=== PATIENT | female | born 1975 | race Caucasian/White ===

== ENCOUNTER → 2017-04-09 | Outpatient (CLI) | payer OTHER ==
[~2017-04-09] MED LIST: DIAZ5 PO
== END ==
LOC: CPRE 12:40
PROVIDERS: ATTEND Obstetrics & Gynecology
DX: Z01.812 Encounter for preprocedural laboratory examination (principal); N85.00 Endometrial hyperplasia, unspecified; N92.0 Excessive and frequent menstruation with regular cycle; N92.1 Excessive and frequent menstruation with irregular cycle; N83.209 Unspecified ovarian cyst, unspecified side

== ENCOUNTER 2017-04-17 06:00 | Observation (INO) | payer OTHER ==
[~2017-04-17] VITALS: Ht 149.9 cm; Wt 65.9 kg
[2017-04-17] MEDS ORDERED: CHLORHEXIDINE GLUCONATE 2 % 1 PACK (2 CLOTHS) TOPICAL PRN (06:45)
[2017-04-17] MEDS ORDERED: LACTATED RINGER'S 1000 ML IV PRN (06:45)
[2017-04-17] MEDS ORDERED: POVIDONE IODINE 5% (ANTISEPSIS KIT) 4 APPLICATIONS EACH NARE PRN (06:45)
[2017-04-17] MEDS ORDERED: INSULIN HUMAN REGULAR 1,000 UNITS/10 ML VIAL SQ PRN (06:45)
[2017-04-17] MEDS ORDERED: SODIUM CHLORID 0.9% 500 ML IV PRN (06:45)
[2017-04-17] MEDS ORDERED: METOPROLOL TARTRATE 25 MG TAB PO PRN (06:45)
[2017-04-17] MEDS ORDERED: DIAZ5 PO (07:10)
[2017-04-17] MEDS ORDERED: ACETAMINOPHEN 1000 MG/100 ML 100 ML IV ONE (07:10)
[2017-04-17] MEDS ORDERED: ESTROGENS CONJUGATED VAG CREA 15 APPL/30 GM TUBE ONE (07:30)
[2017-04-17] MEDS ORDERED: ceFAZolin INJ 1,000 MG VIAL IV ONE (08:48)
[2017-04-17] MEDS ORDERED: DO NOT ADM ANY ANTICOAGULANT DRUGS PRN (11:02)
[2017-04-17] MEDS ORDERED: *ONDANSETRON 4 MG VIAL PERIprocedural Use ONLY ONE (11:59)
[2017-04-17] MEDS ORDERED: SODIUM CHLORIDE 0.9% FLUSH 10 ML FLUSH IV FLUSH PRN (13:00)
[2017-04-17] MEDS ORDERED: DIAZEPAM 5 MG TAB PO PRN (13:00)
[2017-04-17] MEDS ORDERED: diphenhydrAMINE HCL 25 MG CAP PO PRN (13:00)
[2017-04-17] MEDS: DOCUSATE SODIUM 100 MG CAP PO SCH (13:00)
[2017-04-17 14:00] VITALS: BP 97/62; PULSE 88; RESP 18; O2SAT 100
[2017-04-17 14:50] VITALS: TEMP 99
[2017-04-17] MEDS: IBUPROFEN 600 MG TAB PO SCH ×2 (15:00→21:14)
[2017-04-17] MEDS ORDERED: HYDROmorphone HCL PF 1 MG/ML VIAL IVP PRN (15:00)
[2017-04-17] MEDS ORDERED: oxyCODONE/ACETAMINOPHEN 5 MG/325 MG TAB PO PRN ×2 (15:00)
[2017-04-17] MEDS ORDERED: PROMETHAZINE INJ 25 MG/ML VIAL IM PRN (15:00)
[2017-04-17 17:20] VITALS: BP 94/53; PULSE 91; RESP 18; TEMP 98.3; O2SAT 99
[2017-04-17] MEDS: ONDANSETRON HCL 4 MG/2 ML VIAL IVP PRN (17:45)
[2017-04-17 19:56] VITALS: BP 93/54; PULSE 95; RESP 16; TEMP 99.4
[2017-04-17] MEDS ORDERED: SODIUM CHLORIDE 0.9% FLUSH 10 ML FLUSH IV FLUSH SCH (21:00)
[2017-04-17] MEDS ORDERED: ZOLPIDEM TARTRATE 5 MG TAB PO PRN (21:00)
[2017-04-17] MEDS: LACTATED RINGER'S 1000 ML INJ 1,000 ML IV SCH (21:19)
[2017-04-18 00:50] VITALS: BP 96/53; PULSE 105; RESP 16; TEMP 98.7; O2SAT 99
[2017-04-18] MEDS: DOCUSATE SODIUM 100 MG CAP PO SCH ×2 (02:52→12:25)
[2017-04-18] MEDS: IBUPROFEN 600 MG TAB PO SCH ×2 (02:52→12:25)
[2017-04-18] MEDS: LACTATED RINGER'S 1000 ML INJ 1,000 ML IV SCH (05:00)
[2017-04-18 05:15] VITALS: BP 93/51; PULSE 88; RESP 16; TEMP 98.8; O2SAT 99
[2017-04-18 06:52] LABS: AUTOMATED NEUTROPHIL # 4.2 TH/MM3 (1.8-7.7); BASOPHIL % 0.3 % (0.0-2.0); EOSINOPHIL % 0.6 % (0.0-4.0); HEMATOCRIT 23.5 % (35.0-46.0); HEMO FLAGS DIFF FINAL; LYMPHOCYTE # 1.2 TH/MM3 (1.0-4.8); MEAN CELL VOLUME 84.8 FL (80.0-100.0); MEAN CORPUSCULAR HEMOGLOBIN 29.1 PG (27.0-34.0); MEAN CORPUSCULAR HGB CONC 34.3 % (32.0-36.0); MONO % 6.5 % (0.0-8.0); NEUT % 71.6 % (16.0-70.0); PLATELET COUNT 113 TH/MM3 (150-450); RED BLOOD COUNT 2.77 MIL/MM3 (4.00-5.30); RED CELL DISTRIBUTION WIDTH 14.2 % (11.6-17.2); WHITE BLOOD COUNT 5.9 TH/MM3 (4.0-11.0)
[2017-04-18 07:11] LABS: BICARBONATE 25.5 MEQ/L (21.0-32.0); POTASSIUM 3.5 MEQ/L (3.5-5.1)
[2017-04-18 07:35] LABS: CALCIUM-PROTEIN CORRECTED 8.5 MG/DL (8.5-10.1)
[2017-04-18 08:00] VITALS: BP 96/54; PULSE 99; RESP 16; TEMP 98.4; O2SAT 99
[2017-04-18] MEDS: ONDANSETRON HCL 4 MG/2 ML VIAL IVP PRN (09:18)
--- NOTE | 2017-04-18 09:40 | MP ---
cc: Nayeli FLORES MD DATE OF SURGERY: April 17, 2017 PREOPERATIVE DIAGNOSIS 1. Menorrhagia. 2. Endometrial hyperplasia. 3. Left ovarian cyst. 4. Enlarged uterus. POSTOPERATIVE DIAGNOSIS 1. Menorrhagia. 2. Endometrial hyperplasia. 3. Left ovarian cyst. 4. Enlarged uterus. 5. No ovarian cyst. 6. Probable adenomyosis. PROCEDURE Laparoscopic-assisted vaginal hysterectomy, left salpingo-oophorectomy, right salpingectomy and left ureterolysis. ANESTHESIA General endotracheal intubation. SURGEON Nayeli Flores MD FINDINGS Examination under anesthesia, vagina was clean, the cervix was without lesions. The uterus was 12 weeks size and freely mobile, globular. The adnexa were negative for masses. The laparoscopic exam revealed a markedly enlarged uterus with no discrete fibroids. The fallopian tubes were normal in length and caliber. She did have Essure's implanted earlier. The ovaries were normal bilaterally. The posterior cul-de-sac was free of any endometriosis or adhesions as was the anterior cul-de-sac. COMPLICATIONS None. COUNTS Counts were correct. ESTIMATED BLOOD LOSS 100 ccs. FLUIDS Crystalloids. CONDITION The patient tolerated the procedure well and went to the recovery room in good condition. PROCEDURE IN DETAIL The patient went to the operating room, identified by name band and verbally, given a general anesthetic, placed in dorsal lithotomy position, prepped and draped in the usual sterile fashion. A Sauer catheter was inserted and the time-out was taken. Once we agreed a examination under anesthesia was carried out with the above findings. A weighted speculum was placed in the vagina. The anterior lip of the cervix was grasped with single-tooth tenaculum. A V-Care device was inserted. The uterus sounded to 12 cm. Attention was turned to the umbilical area, a small subumbilical incision was made and the 5-mm trocar was placed without difficulty and pneumoperitoneum was created with 3 liters of CO2. The inferolateral to the umbilicus bilaterally we placed two more 5 mm ports. We began with the fallopian tubes taking them down from the fimbriated end and to the uterus and we then took the broad ligament down. On the left side when taking the broad ligament down the utero-ovarian ligament was very short and we encountered some bleeding in this area. We attempted to make this hemostatic using the Kleppinger forceps, however, she began bleeding in the infundibulopelvic ligament so we did take that. It was very close to the pelvic sidewall where she was bleeding and therefore, I wanted to make sure that the ureter was safe, this stopped the bleeding. At this point we continued skeletonizing the uterine vessels. The uterine vessels on the right were markedly enlarged and that was taken with the Kleppinger before we used the harmonic scalpel. Once we had done that Harmonic scalpel was used after we had made adequate bladder flap to take the uterine vessels bilaterally. The uterus whitened nicely. At this point we took down the cardinal ligament with several bites and could see the V-Care clearly. Attention was then turned to the V-Care and we made a circumferential incision around the V-Care and freed up that specimen. We went back and took that infundibulopelvic ligament off of the left ovary and placed a lap in the vagina so we would not lose air and placed a laparoscopic grasper into the vagina into the peritoneum and grasped that ovary under laparoscopic control and removed it. Then we took a double tooth tenaculum and pulled the V-Care up and grabbed the cervix. The uterus was quite difficult to the liver because it was so large but with a little pressure and pulling the uterus and fallopian tubes were delivered without difficulty. At this point the vaginal cuff was repaired with 0 Vicryl in interrupted fashion in the usual fashion. The vagina was washed, hemostasis was excellent. Went back up to look at the laparoscope, everything was hemostatic and looked normal. At this time we went retroperitoneal on the left side and identified the ureter which was free from any defect. The retroperitoneal area looked normal, there was no hematoma formation in this area luckily. At this point we irrigated with an large amount of fluids and looked at the liver and gallbladder, the upper abdomen looked normal. We put her in reverse Trendelenburg in effort to remove all the extra blood and fluid. The laparoscope was then removed under direct vision. The air was released through the second and third puncture sites and the skin was repaired with a 4-0 Monocryl in subcuticular fashion. She tolerated the procedure well and went to the recovery room in good condition. R. MD CHRISTINA De La Garza/ANTWAN /8:41 AM /9:15 AM
--- NOTE | 2017-04-18 09:46 | HHI.PR ---
Subjective Remarks Doing well, pain is well controlled and minimal, Tolerating diet well No chest pain, dizziness, or SOB Voiding well. . Objective Vital Signs Vital Signs Date Time Temp Pulse Resp B/P (MAP) Pulse Ox O2 Delivery O2 Flow Rate FiO2 04/18/17 05:15 98.8 88 16 93/51 (65) 99 04/18/17 00:50 98.7 105 16 96/53 (67) 99 04/17/17 19:56 99.4 95 16 93/54 (67) 04/17/17 17:20 98.3 91 18 94/53 (67) 99 04/17/17 14:50 99.0 04/17/17 14:00 88 18 97/62 (74) 100 04/17/17 13:50 97.6 86 20 92/55 (67) 100 Room Air 04/17/17 13:30 85 20 93/54 (67) 100 Room Air 04/17/17 13:15 88 20 94/53 (67) 100 Room Air 04/17/17 13:00 83 20 93/50 (64) 100 Room Air 04/17/17 12:45 84 20 90/51 (64) 100 Room Air 04/17/17 12:30 80 20 89/55 (66) 100 Room Air 04/17/17 12:15 80 20 88/55 (66) 100 Room Air 04/17/17 12:00 72 20 88/53 (65) 100 Room Air 04/17/17 11:45 77 20 89/54 (66) 100 Room Air 04/17/17 11:30 69 20 90/50 (63) 100 04/17/17 11:15 70 20 96/51 (66) 100 Nasal Cannula 2 04/17/17 11:01 97.4 81 20 106/53 (70) 100 Nasal Cannula 2 I/O 04/17/17 04/17/17 04/17/17 04/18/17 04/18/17 04/18/17 07:00 15:00 23:00 07:00 15:00 23:00 Intake Total 1700 ml 1022 ml 798 ml Output Total 500 ml 550 ml 1750 ml 400 ml Balance 1200 ml 472 ml -952 ml -400 ml Intake IV Total 1022 ml 798 ml Other 1700 ml Output Urine Total 550 ml 1750 ml 400 ml Estimated Blood Loss 100 ml Other 400 ml Result Diagram: 04/18/1760504/18/17605 Objective Remarks Chest is clear, regular rate and rhythm. Abdomen is soft and non-distended. Incision is clean and dry. Ext no CCE. A/P Assessment and Plan Post Op Day 1 Severe anemia. No signs of active bleeding on exam. Will repeat CBC today and give some venofer today Consider d/c home today and return to office in two weeks. Nayeli Flores MD Apr 18, 2017 09:46
[2017-04-18] MEDS ORDERED: IRON SUCROSE INJ 200 MG in SODIUM CHLORIDE 0.9% INJ 100 ML IV ONE (10:00)
[2017-04-18 12:30] VITALS: BP 95/52; PULSE 90; RESP 12
[2017-04-18 16:00] VITALS: BP 98/64; PULSE 76; RESP 14; TEMP 98.3
[2017-04-18 16:04] LABS: HEMATOCRIT 24.4 % (35.0-46.0); MEAN CELL VOLUME 85.1 FL (80.0-100.0); MEAN CORPUSCULAR HEMOGLOBIN 28.5 PG (27.0-34.0); MEAN CORPUSCULAR HGB CONC 33.5 % (32.0-36.0); PLATELET COUNT 119 TH/MM3 (150-450); RED BLOOD COUNT 2.87 MIL/MM3 (4.00-5.30); RED CELL DISTRIBUTION WIDTH 14.2 % (11.6-17.2); REVIEW FLAG FINAL; WHITE BLOOD COUNT 4.8 TH/MM3 (4.0-11.0)
--- NOTE | 2017-04-18 16:06 | HHI.DCPOC ---
Discharge Care Plan Diagnosis: (1) Status post laparoscopic assisted vaginal hysterectomy (LAVH) Report Symptoms to Your Doctor -Temperature above 100.5 degrees -Redness, of incision or excessive or foul smelling drainage -Unusual pain or calf pain -Increased vaginal bleeding -Painful or difficulty urinating -Feelings of extreme sadness or anxiety after 2 weeks Goals to Promote Your Health * To prevent worsening of your condition and complications * To maintain your health at the optimal level Directions to Meet Your Goals Take your medications as prescribed Follow your dietary instruction Follow activity as directed Ensure plenty of rest for recovery Drink fluids for hydration Keep your appointments as scheduled Take your immunizations and boosters as scheduled If your symptoms worsen call your PCP, if no PCP go to Urgent Care Center or Emergency Room Smoking is Dangerous to Your Health. Avoid second hand smoke Call the 24-hour crisis hotline for domestic abuse at [facility] Fraga Apr 18, 2017 16:06
== END 2017-04-18 18:23 | disposition home or self-care (01) ==
LOC: HSDC 06:00 → HSDI 11:04 → H1EA 14:00
PROVIDERS: ADMIT Obstetrics & Gynecology; ATTEND Obstetrics & Gynecology
DX: N92.0 Excessive and frequent menstruation with regular cycle (principal); N85.00 Endometrial hyperplasia, unspecified; N83.202 Unspecified ovarian cyst, left side; N85.2 Hypertrophy of uterus
CPT/HCPCS: 00840; 58554; 80048; 84155; 85025; 85027; 86850; 86900; 86901; 88307; 94150; 96361; 96372; 96374; 96376; G0378; J0131; J0690; J1756; J2405; J2550; J7120